=== PATIENT | female | born 1995 | race Two or more races ===

== ENCOUNTER 2025-02-12 12:00 | Day surgery (SDC) | payer OTHER ==
[2025-02-05 10:38] LABS: BASO % 0.8 % (0.1-1.2); EOS # 0.05 (0.04-0.54); EOS % 1.3 % (0.7-7.0); LYMPH # 1.70 (1.18-3.74); LYMPH % 42.8 % (19.3-53.1); MEAN PLATELET VOLUME 10.10 fl (9.4-12.4); MONO # 0.24 (0.24-0.82); MONO % 6.0 % (4.7-12.5); NEUT # 1.94 (1.56-6.13); NEUT % 48.8 % (34.0-71.1); RED CELL DISTRIBUTION WIDTH 12.7 % (11.6-14.4)
[2025-02-05 11:01] LABS: INR 1.05
[2025-02-05 11:09] LABS: URINE APPEARANCE Clear; URINE BILIRRUBIN Negative (NEGATIVE); URINE BLOOD Negative; URINE COLOR Yellow; URINE GLUCOSE Negative (NEGATIVE); URINE LEUKOCYTE Negative; URINE NITRATE Negative; URINE PROTEIN Negative (NEGATIVE); URINE UROBILINOGEN 1.0 E.U./dl
[2025-02-05 11:31] LABS: URINE KETONE 40 (NEGATIVE)
[2025-02-05 11:32] LABS: URINE BACTERIA MODERATE; URINE MUCUS MODERATE; URINE RBC 0-3 /HPF; URINE WBC 0-2 /hpf
[2025-02-05 11:42] LABS: ALT/SGPT 29.0 U/L (12-78); AST/SGOT 13.0 U/L (15-37); BILIRUBIN TOTAL 0.8 mg/dL (0.3-1.2); BUN CREA RATIO 16.0 (7.0-25.0); CREATININE SERUM 0.5 mg/dL (0.55-1.02); GFR 145.87; GLOBULINA 2.9 G/DL (2.4-3.5); GLUCOSE FASTING 87.0 mg/dL (65-100); OSMOLALITY SERUM 283.0 MOSM/KG (275-295)
[~2025-02-12 12:00] MED LIST: BUSPAR 5MG; DICY20TA; FAMOTIDINE 40MG; KETOROLAC 10 MG
[2025-02-12] MEDS ORDERED: CEFAZOLIN SODIUM 1,000 MG VIAL ONE (12:14)
[2025-02-12] MEDS ORDERED: SUGAMMADEX SODIUM 200 MG/2 ML VIAL IV ONE (17:36)
== END 2025-02-12 20:40 | disposition home or self-care (01) ==
LOC: CIR.AMB 12:00
PROVIDERS: ATTEND Surgery
DX: K81.1 Chronic cholecystitis (principal)